=== PATIENT | female | born 1940 | race African-American/Black ===

== ENCOUNTER 2023-04-03 14:56 | Inpatient (IN) | payer MEDICARE ==
[~2023-04-03] VITALS: Ht 154.9 cm; Wt 57.0 kg
[2023-04-03] MEDS ORDERED: 0.9% SODIUM CHLORIDE 10 ML SYRINGE IVP PRN (15:15)
[2023-04-03] MEDS ORDERED: CefTRIAXone 1 GM/DEXTROSE 50 ML IV ONE (15:15)
[2023-04-03] MEDS ORDERED: SODIUM CHLORIDE 0.9% 2,000 ML IV ONE (15:15)
[2023-04-03 15:47] LABS: COVID AG,FIA SOURCE NASOPHARYNGEAL
[2023-04-03 15:57] LABS: BASOPHILS % (AUTO) 0.1 % (0.0-2.0); EOSINOPHILS % (AUTO) 0.1 % (1.0-6.0); HEMATOCRIT 35.8 % (36-46); HEMOGLOBIN 11.3 g/dL (12.0-16.0); LYMPHOCYTES % (AUTO) 6.6 % (22.0-44.0); MEAN CORPUSCULAR HEMOGLOBIN 29.4 pg (26.0-34.0); MEAN CORPUSCULAR HGB CONC 31.5 G/dL (31.0-37.0); MEAN CORPUSCULAR VOLUME 93 fL (80-100); MONOCYTES # (AUTO) 0.5 K/uL (0.1-1.0); MONOCYTES % (AUTO) 3.1 % (2.0-9.0); NEUTROPHILS # (AUTO) 13.7 K/uL (1.8-7.7); PLATELET COUNT (AUTO) 196 K/uL (150-450); RED BLOOD CELL COUNT(AUTO) 3.83 MIL/uL (4.00-5.20); RED CELL DISTRIBUTION WIDTH 16.8 % (11.5-14.5)
[2023-04-03 15:59] LABS: NEUTROPHILS % (AUTO) 90.1 % (40.0-70.0)
[2023-04-03] MEDS ORDERED: ACETAMINOPHEN 1000 MG/ISO-OSM 100 ML IV ONE (16:00)
[2023-04-03 16:08] LABS: INR 1.3 (0.9-1.1); PROTHROMBIN TIME 13.6 SEC (9.4-11.6)
[2023-04-03 16:09] LABS: ANION GAP 16 mmol/L (8-16); CALCIUM, TOTAL 8.8 mg/dL (8.8-10.5); CARBON DIOXIDE 25 mmol/L (22-29); CHLORIDE 104 mmol/L (98-107); CREATININE 1.56 mg/dL (0.60-1.30); GLOMERULAR FILTR. RATE CALC 38 mL/min (>60); GLUCOSE,RANDOM 157 mg/dL (70-110); POTASSIUM 3.3 mmol/L (3.5-5.1); SODIUM SERUM 145 mmol/L (136-145)
[2023-04-03 16:14] LABS: AMMONIA 39 umol/L (11-32); B-TYPE NATRIURETIC PEPTIDE 124 pg/mL (0-100)
[2023-04-03 16:17] LABS: LACTIC ACID 3.5 mmol/L (0.4-2.0)
[2023-04-03 16:22] LABS: ALANINE AMINOTRANSFERASE 7 U/L (12-78); ALBUMIN 1.8 g/dL (3.4-5.0); ALKALINE PHOSPHATASE 133 U/L (46-116); ASPARTATE AMINOTRANSFERASE 25 U/L (15-37); BILIRUBIN,TOTAL 0.5 mg/dL (0.1-1.0); TOTAL PROTEIN, SERUM 6.8 g/dL (6.4-8.2)
[2023-04-03 16:35] LABS: LIPASE < 10 U/L (73-393)
[2023-04-03] MEDS ORDERED: SODIUM CHLORIDE 0.9% 1,000 ML IV ONE ×2 (17:15→19:15)
[2023-04-03] MEDS ORDERED: PIPERACILLIN/TAZO 3.375 GM/D5W 50 ML IV ONE (18:45)
[2023-04-03] MEDS: NOREPINEPHRINE 8 MG/0.9 % NACL 250 ML IV PRN (18:54)
[2023-04-03] MEDS ORDERED: ONDANSETRON HCL 4 MG/2 ML VIAL IVP PRN (19:15)
[2023-04-03] MEDS ORDERED: OxyCODONE HCL/ACETAMINOPHEN 5-325 MG TABLET PO PRN (19:15)
[2023-04-03 19:26] LABS: APPEARANCE,URINE HAZY (CLEAR); BILIRUBIN,URINE NEGATIVE (NEGATIVE); GLUCOSE, URINE (UA) NEGATIVE (NEGATIVE); KETONES,URINE NEGATIVE (NEGATIVE); LEUKOCYTE ESTERASE ,URINE LARGE (NEGATIVE); NITRATE,URINE NEGATIVE (NEGATIVE); OCCULT BLOOD,URINE MODERATE (NEGATIVE); PROTEIN,URINE 100-200,SEE CONFIRM mg/dL (NEGATIVE); SPECIFIC GRAVITIY, URINE 1.013 (1.003-1.030)
[2023-04-03] MEDS ORDERED: VANCOMYCIN HCL 750 MG in DEXTROSE 5%-WATER 250 ML IV ONE (19:30)
[2023-04-03 19:35] LABS: BACTERIA,URINE Many /HPF (None Seen); SULFOSALICYLIC ACID,URINE 3+ (Negative); WBC,URINE 51-100 /HPF (0-5)
[2023-04-03 19:36] LABS: SQUAMOUS EPITHELIAL CELL,UR Moderate /LPF (None Seen)
[2023-04-03 23:00] VITALS: BP 117/44; PULSE 95; RESP 22; TEMP 99.6
[2023-04-03] MEDS: DOCUSATE SODIUM 100 MG CAPSULE PO SCH (23:59)
[2023-04-03] MEDS: HEPARIN SODIUM,PORCINE 5,000 UNITS/ML VIAL SQ SCH (23:59)
[2023-04-04] VITALS: BP 76/51; PULSE 93; RESP 21; TEMP 99.6
[2023-04-04] MEDS ORDERED: SODIUM CHLORIDE 0.9% 250 ML IV ONE ×3 (00:01→18:00)
[2023-04-04] MEDS ORDERED: PIPERACILLIN SODIUM/TAZOBACTAM 2.25 GM in DEXTROSE 5%-WATER 50 ML IV SCH (01:00)
[2023-04-04] MEDS: ACETAMINOPHEN 650 MG/ISO-OSM 65 ML IV PRN ×2 (02:41→16:25)
[2023-04-04 04:00] VITALS: BP 111/66; PULSE 116; RESP 32; TEMP 103.7
[2023-04-04] MEDS: NOREPINEPHRINE 8 MG/0.9 % NACL 250 ML IV PRN (05:16)
[2023-04-04 06:11] LABS: CALCIUM, TOTAL 7.4 mg/dL (8.8-10.5); CREATININE 1.64 mg/dL (0.60-1.30)
[2023-04-04 06:16] LABS: POTASSIUM 2.7 mmol/L (3.5-5.1)
[2023-04-04 06:45] LABS: LACTIC ACID 5.9 mmol/L (0.4-2.0)
[2023-04-04] MEDS: POTASSIUM CHL 10 MEQ/WATER 50 ML IV SCH ×4 (06:51→10:05)
[2023-04-04] MEDS ORDERED: DEXTROSE 50%-WATER 25 GM/50 ML SYRINGE IVP PRN (07:30)
[2023-04-04 08:00] VITALS: BP 94/48; PULSE 109; PULSE 94; RESP 26; TEMP 99.8
[2023-04-04] MEDS: MULTIVITAMINS WITH MINERALS, THERAPEUTIC TABLET PO SCH ×2 (08:17→09:00)
[2023-04-04] MEDS: HEPARIN SODIUM,PORCINE 5,000 UNITS/ML VIAL SQ SCH ×2 (08:17→15:43)
[2023-04-04] MEDS: PIPERACILLIN SODIUM/TAZOBACTAM 2.25 GM in DEXTROSE 5%-WATER 50 ML IV SCH ×5 (08:18→18:41)
[2023-04-04] MEDS: DOCUSATE SODIUM 100 MG CAPSULE PO SCH ×2 (08:18→19:34)
[2023-04-04] MEDS: FAMOTIDINE 20 MG TABLET PO SCH ×2 (08:18→09:00)
[2023-04-04] MEDS: VANCOMYCIN HCL 500 MG in DEXTROSE 5%-WATER 100 ML IV SCH (08:19)
[2023-04-04 09:25] LABS: BASOPHILS % (AUTO) 0.1 % (0.0-2.0); EOSINOPHILS % (AUTO) 0.3 % (1.0-6.0); LYMPHOCYTES # (AUTO) 0.5 K/uL (1.0-4.8); LYMPHOCYTES % (AUTO) 3.5 % (22.0-44.0); MEAN CORPUSCULAR VOLUME 95 fL (80-100); MONOCYTES # (AUTO) 0.4 K/uL (0.1-1.0); MONOCYTES % (AUTO) 2.4 % (2.0-9.0); NEUTROPHILS # (AUTO) 14.6 K/uL (1.8-7.7)
[2023-04-04 09:26] LABS: NEUTROPHILS % (AUTO) 93.7 % (40.0-70.0)
[2023-04-04 09:27] LABS: HEMATOCRIT 33.2 % (36-46); HEMOGLOBIN 10.3 g/dL (12.0-16.0); MEAN CORPUSCULAR HEMOGLOBIN 29.2 pg (26.0-34.0); PLATELET COUNT (AUTO) 186 K/uL (150-450); RED BLOOD CELL COUNT(AUTO) 3.29 MIL/uL (4.00-5.20)
[2023-04-04 12:00] VITALS: BP 89/50; PULSE 105; RESP 26; TEMP 98.7
[2023-04-04 16:00] VITALS: BP 161/99; PULSE 125; RESP 27; TEMP 100.3
[2023-04-04] MEDS ORDERED: METOPROLOL TARTRATE 5 MG/5 ML VIAL IVP ONE (18:00)
[2023-04-04] MEDS: DEXTROSE 5%-0.45% SODIUM CHL 1,000 ML IV SCH (18:04)
[2023-04-04 20:00] VITALS: BP 87/55; PULSE 95; RESP 28; TEMP 99.2
[2023-04-05] VITALS: BP 115/68; PULSE 95; RESP 23; TEMP 99.5
[2023-04-05] MEDS: HEPARIN SODIUM,PORCINE 5,000 UNITS/ML VIAL SQ SCH ×3 (00:30→18:31)
[2023-04-05] MEDS: PIPERACILLIN SODIUM/TAZOBACTAM 2.25 GM in DEXTROSE 5%-WATER 50 ML IV SCH ×2 (00:30→07:06)
[2023-04-05 04:00] VITALS: BP 143/77; PULSE 119; PULSE 120; RESP 29; TEMP 99.9
[2023-04-05] MEDS: ACETAMINOPHEN 650 MG/ISO-OSM 65 ML IV PRN (04:51)
[2023-04-05] MEDS: INSULIN LISPRO 100 UNITS/ML SQ PRN (05:28)
[2023-04-05 05:55] LABS: CALCIUM, TOTAL 6.1 mg/dL (8.8-10.5); CREATININE 1.58 mg/dL (0.60-1.30); VANCOMYCIN,RANDOM 13.3 mcg/mL (25.0-50.0)
[2023-04-05 06:08] LABS: POTASSIUM 2.4 mmol/L (3.5-5.1)
[2023-04-05] MEDS: VANCOMYCIN HCL 500 MG in DEXTROSE 5%-WATER 100 ML IV SCH (07:50)
[2023-04-05 08:00] VITALS: BP 86/46; PULSE 104; RESP 21; TEMP 100.1
[2023-04-05] MEDS: PHENYLEPHRINE 200 MG/D5%-WATER 250 ML IV PRN ×2 (08:15→20:12)
[2023-04-05] MEDS: DOCUSATE SODIUM 100 MG CAPSULE PO SCH ×2 (09:00→20:03)
[2023-04-05] MEDS: MULTIVITAMINS WITH MINERALS, THERAPEUTIC TABLET PO SCH (09:34)
[2023-04-05] MEDS: POTASSIUM CHLORIDE 20 MEQ ER TABLET PO PRN (09:34)
[2023-04-05] MEDS: FAMOTIDINE 20 MG TABLET PO SCH (09:34)
[2023-04-05] MEDS: POTASSIUM CHL 10 MEQ/WATER 50 ML IV PRN ×3 (09:35→14:54)
[2023-04-05] MEDS: DEXTROSE 5%-0.45% SODIUM CHL 1,000 ML IV SCH ×2 (09:38→22:32)
[2023-04-05] MEDS: NOREPINEPHRINE 8 MG/0.9 % NACL 250 ML IV PRN (10:51)
[2023-04-05 12:00] VITALS: BP 98/47; PULSE 101; RESP 24; TEMP 100
[2023-04-05] MEDS ORDERED: *CLINICAL-LEVOFLOXACIN IVPB DOSING CLINICAL ONE (12:00)
[2023-04-05] MEDS ORDERED: *CLINICAL-MEROPENEM DOSING CLINICAL ONE (12:00)
[2023-04-05] MEDS: ACETAMINOPHEN 325 MG TABLET PO PRN (12:04)
[2023-04-05 12:51] LABS: C.DIFF GDH ANTIGEN, Stool Positive (Negative); C.DIFF TOXINS A&B, Stool Negative (Negative)
[2023-04-05] MEDS: LEVOFLOXACIN 750 MG/D5% WATER 150 ML IV SCH (14:04)
[2023-04-05] MEDS: MEROPENEM 500 MG in SODIUM CHLORIDE 0.9% 50 ML IV SCH (14:05)
[2023-04-05 16:47] VITALS: BP 114/64; PULSE 103; RESP 26; TEMP 99.6
[2023-04-05] MEDS: MetroNIDAZOLE 500 MG TABLET PO SCH (18:31)
[2023-04-05 20:00] VITALS: BP 102/60; PULSE 105; RESP 26; TEMP 99.6
[2023-04-05] MEDS: ETHYL ALCOHOL 62% ANTISEPTIC NASAL SANITIZER 0.6 ML AMPUL NASAL SCH (20:32)
[2023-04-06] VITALS: BP 94/71; PULSE 106; RESP 27; TEMP 99.7
[2023-04-06] MEDS: MetroNIDAZOLE 500 MG TABLET PO SCH ×2 (00:04→08:10)
[2023-04-06] MEDS: HEPARIN SODIUM,PORCINE 5,000 UNITS/ML VIAL SQ SCH ×3 (00:04→16:31)
[2023-04-06] MEDS: MEROPENEM 500 MG in SODIUM CHLORIDE 0.9% 50 ML IV SCH ×2 (02:12→15:17)
[2023-04-06 04:00] VITALS: BP 96/72; PULSE 106; RESP 25; TEMP 99.7
[2023-04-06] MEDS: INSULIN LISPRO 100 UNITS/ML SQ PRN (06:03)
[2023-04-06 06:13] LABS: CALCIUM, TOTAL 7.5 mg/dL (8.8-10.5); CREATININE 1.63 mg/dL (0.60-1.30); POTASSIUM 3.2 mmol/L (3.5-5.1)
[2023-04-06] MEDS: POTASSIUM CHLORIDE 20 MEQ ER TABLET PO PRN (06:42)
[2023-04-06] MEDS: PHENYLEPHRINE 200 MG/D5%-WATER 250 ML IV PRN ×2 (07:39→23:08)
[2023-04-06] MEDS: NOREPINEPHRINE 8 MG/0.9 % NACL 250 ML IV PRN (07:39)
[2023-04-06 08:00] VITALS: BP 130/68; PULSE 106; RESP 25; TEMP 99.7
[2023-04-06] MEDS: VANCOMYCIN HCL 500 MG in DEXTROSE 5%-WATER 100 ML IV SCH (08:09)
[2023-04-06] MEDS: ETHYL ALCOHOL 62% ANTISEPTIC NASAL SANITIZER 0.6 ML AMPUL NASAL SCH ×2 (08:09→20:49)
[2023-04-06] MEDS: FAMOTIDINE 20 MG TABLET PO SCH (08:10)
[2023-04-06] MEDS: DOCUSATE SODIUM 100 MG CAPSULE PO SCH ×2 (08:10→20:49)
[2023-04-06] MEDS: MULTIVITAMINS WITH MINERALS, THERAPEUTIC TABLET PO SCH (08:10)
[2023-04-06] MEDS: MIDODRINE HCL 5 MG TABLET PO SCH ×3 (09:04→20:49)
[2023-04-06 10:08] LABS: HEMATOCRIT 32.4 % (36-46); MEAN CORPUSCULAR HEMOGLOBIN 29.2 pg (26.0-34.0); MEAN CORPUSCULAR HGB CONC 30.8 G/dL (31.0-37.0); MEAN CORPUSCULAR VOLUME 95 fL (80-100); RED BLOOD CELL COUNT(AUTO) 3.42 MIL/uL (4.00-5.20)
[2023-04-06 10:47] LABS: PLATELET COUNT (AUTO) 28 K/uL (150-450)
[2023-04-06 11:06] LABS: BAND NEUTROPHILS % (MANUAL) 10 % (0-5); LYMPHOCYTES % (MANUAL) 5 % (22-44); MONOCYTES % (MANUAL) 4 % (2-9); SEGMENTED NEUTROPHILS % 81 % (40-70)
[2023-04-06 11:09] LABS: WBC MORPHOLOGY TOXIC GRANULATION
[2023-04-06 12:00] VITALS: BP 83/67; PULSE 99; RESP 28; TEMP 99.3
[2023-04-06] MEDS: DEXTROSE 5%-0.45% SODIUM CHL 1,000 ML IV SCH (12:39)
[2023-04-06] MEDS: SODIUM CHLORIDE 0.9% 1,000 ML IV SCH (13:10)
[2023-04-06] MEDS: VANCOMYCIN HCL 125 MG/2.5 ML SOLUTION ORAL.SYG PO SCH ×2 (13:13→17:30)
[2023-04-06 16:00] VITALS: BP 88/62; PULSE 90; RESP 27; TEMP 99.2
[2023-04-06] MEDS: ACETAMINOPHEN 325 MG TABLET PO PRN (17:30)
[2023-04-06 20:00] VITALS: BP 97/69; PULSE 97; RESP 24; TEMP 98.9
[2023-04-07] VITALS: BP 101/71; PULSE 94; RESP 21; TEMP 98.8
[2023-04-07] MEDS: VANCOMYCIN HCL 125 MG/2.5 ML SOLUTION ORAL.SYG PO SCH ×4 (00:17→17:43)
[2023-04-07] MEDS: HEPARIN SODIUM,PORCINE 5,000 UNITS/ML VIAL SQ SCH ×3 (00:17→17:43)
[2023-04-07] MEDS: MEROPENEM 500 MG in SODIUM CHLORIDE 0.9% 50 ML IV SCH (02:45)
[2023-04-07 04:00] VITALS: BP 110/74; PULSE 90; RESP 22; TEMP 99
[2023-04-07] MEDS: INSULIN LISPRO 100 UNITS/ML SQ PRN (06:19)
[2023-04-07 06:26] LABS: HEMOGLOBIN 9.9 g/dL (12.0-16.0); MEAN CORPUSCULAR HEMOGLOBIN 28.3 pg (26.0-34.0); MEAN CORPUSCULAR HGB CONC 30.8 G/dL (31.0-37.0); MEAN CORPUSCULAR VOLUME 92 fL (80-100); PLATELET COUNT (AUTO) 38 K/uL (150-450); RED BLOOD CELL COUNT(AUTO) 3.49 MIL/uL (4.00-5.20); RED CELL DISTRIBUTION WIDTH 17.8 % (11.5-14.5)
[2023-04-07 06:51] LABS: CALCIUM, TOTAL 7.8 mg/dL (8.8-10.5); CREATININE 1.08 mg/dL (0.60-1.30); POTASSIUM 3.4 mmol/L (3.5-5.1); VANCOMYCIN,RANDOM 15.4 mcg/mL (25.0-50.0)
[2023-04-07 08:00] VITALS: BP 104/91; PULSE 83; PULSE 84; RESP 23; TEMP 98.9
[2023-04-07] MEDS: MULTIVITAMINS WITH MINERALS, THERAPEUTIC TABLET PO SCH (08:33)
[2023-04-07] MEDS: DOCUSATE SODIUM 100 MG CAPSULE PO SCH ×2 (08:33→21:00)
[2023-04-07] MEDS: MIDODRINE HCL 5 MG TABLET PO SCH ×3 (08:33→21:15)
[2023-04-07] MEDS: FAMOTIDINE 20 MG TABLET PO SCH (08:34)
[2023-04-07] MEDS: SODIUM CHLORIDE 0.9% 1,000 ML IV SCH (08:34)
[2023-04-07] MEDS: VANCOMYCIN HCL 500 MG in DEXTROSE 5%-WATER 100 ML IV SCH (08:35)
[2023-04-07] MEDS: ETHYL ALCOHOL 62% ANTISEPTIC NASAL SANITIZER 0.6 ML AMPUL NASAL SCH ×2 (08:35→21:15)
[2023-04-07 11:29] LABS: BAND NEUTROPHILS % (MANUAL) 12 % (0-5); LYMPHOCYTES % (MANUAL) 7 % (22-44); MONOCYTES % (MANUAL) 3 % (2-9); SEGMENTED NEUTROPHILS % 78 % (40-70)
[2023-04-07 12:00] VITALS: BP 104/64; PULSE 80; PULSE 93; RESP 26; TEMP 98.7
[2023-04-07] MEDS: LEVOFLOXACIN 750 MG/D5% WATER 150 ML IV SCH (12:42)
[2023-04-07] MEDS: MEROPENEM 1 GM in SODIUM CHLORIDE 0.9% 100 ML IV SCH (14:30)
[2023-04-07 16:00] VITALS: BP 106/69; PULSE 83; PULSE 84; RESP 25; TEMP 97.7
[2023-04-07 20:00] VITALS: BP 104/71; PULSE 86; PULSE 91; RESP 27; TEMP 99.1
[2023-04-08] VITALS (9 sets, daily range): BP systolic 110–152; BP diastolic 69–105; PULSE 76–101; RESP 15–24; TEMP 97.6–99.3
[2023-04-08] MEDS: HEPARIN SODIUM,PORCINE 5,000 UNITS/ML VIAL SQ SCH ×4 (01:10→23:21)
[2023-04-08] MEDS: VANCOMYCIN HCL 125 MG/2.5 ML SOLUTION ORAL.SYG PO SCH ×5 (01:18→23:21)
[2023-04-08] MEDS: MEROPENEM 1 GM in SODIUM CHLORIDE 0.9% 100 ML IV SCH ×2 (02:06→15:06)
[2023-04-08] MEDS: SODIUM CHLORIDE 0.9% 1,000 ML IV SCH (05:33)
[2023-04-08] MEDS: VANCOMYCIN HCL 500 MG in DEXTROSE 5%-WATER 100 ML IV SCH (08:23)
[2023-04-08] MEDS: ETHYL ALCOHOL 62% ANTISEPTIC NASAL SANITIZER 0.6 ML AMPUL NASAL SCH ×2 (08:24→21:34)
[2023-04-08] MEDS: DOCUSATE SODIUM 100 MG CAPSULE PO SCH ×2 (08:25→21:34)
[2023-04-08] MEDS: FAMOTIDINE 20 MG TABLET PO SCH (08:25)
[2023-04-08] MEDS: MULTIVITAMINS WITH MINERALS, THERAPEUTIC TABLET PO SCH (08:25)
[2023-04-08] MEDS: MIDODRINE HCL 5 MG TABLET PO SCH ×3 (09:00→21:34)
[2023-04-08 09:19] LABS: HEMATOCRIT 40.2 % (36-46); HEMOGLOBIN 12.3 g/dL (12.0-16.0); MEAN CORPUSCULAR HEMOGLOBIN 28.6 pg (26.0-34.0); MEAN CORPUSCULAR HGB CONC 30.7 G/dL (31.0-37.0); MEAN CORPUSCULAR VOLUME 93 fL (80-100); PLATELET COUNT (AUTO) 37 K/uL (150-450); RED BLOOD CELL COUNT(AUTO) 4.31 MIL/uL (4.00-5.20); RED CELL DISTRIBUTION WIDTH 17.6 % (11.5-14.5)
[2023-04-08 09:22] LABS: BAND NEUTROPHILS % (MANUAL) 12 % (0-5); LYMPHOCYTES % (MANUAL) 11 % (22-44); MONOCYTES % (MANUAL) 6 % (2-9); SEGMENTED NEUTROPHILS % 71 % (40-70)
[2023-04-08 09:33] LABS: ANION GAP 12 mmol/L (8-16); CALCIUM, TOTAL 8.4 mg/dL (8.8-10.5); CARBON DIOXIDE 18 mmol/L (22-29); CHLORIDE 108 mmol/L (98-107); CREATININE 0.93 mg/dL (0.60-1.30); GLOMERULAR FILTR. RATE CALC > 60 mL/min (>60); GLUCOSE,RANDOM 122 mg/dL (70-110); POTASSIUM 3.6 mmol/L (3.5-5.1); SODIUM SERUM 138 mmol/L (136-145)
[2023-04-08] MEDS ORDERED: LIDOCAINE/PF 1% 30 ML VIAL ONE (12:35)
[2023-04-08] MEDS ORDERED: IOHEXOL 300 MG/ML 100 ML VIAL ONE (12:36)
[2023-04-08] MEDS: INSULIN LISPRO 100 UNITS/ML SQ PRN (23:26)
[2023-04-09] VITALS (8 sets, daily range): BP systolic 93–145; BP diastolic 48–81; PULSE 81–93; RESP 14–19; TEMP 97.7–99.3
[2023-04-09] MEDS ORDERED: LIDOCAINE/PF 2% 5 ML VIAL IM ONE (01:39)
[2023-04-09] MEDS: SODIUM CHLORIDE 0.9% 1,000 ML IV SCH ×2 (03:07→22:27)
[2023-04-09] MEDS: MEROPENEM 1 GM in SODIUM CHLORIDE 0.9% 100 ML IV SCH ×2 (03:08→13:46)
[2023-04-09 06:13] LABS: ANION GAP 12 mmol/L (8-16); CALCIUM, TOTAL 7.9 mg/dL (8.8-10.5); CARBON DIOXIDE 18 mmol/L (22-29); CHLORIDE 111 mmol/L (98-107); CREATININE 0.76 mg/dL (0.60-1.30); GLOMERULAR FILTR. RATE CALC > 60 mL/min (>60); GLUCOSE,RANDOM 112 mg/dL (70-110); POTASSIUM 3.1 mmol/L (3.5-5.1); SODIUM SERUM 147 mmol/L (136-145)
[2023-04-09 06:40] LABS: BASOPHILS % (AUTO) 0.5 % (0.0-2.0); EOSINOPHILS % (AUTO) 0.9 % (1.0-6.0); HEMATOCRIT 29.6 % (36-46); HEMOGLOBIN 9.3 g/dL (12.0-16.0); LYMPHOCYTES # (AUTO) 3.5 K/uL (1.0-4.8); LYMPHOCYTES % (AUTO) 15.4 % (22.0-44.0); MEAN CORPUSCULAR HEMOGLOBIN 28.7 pg (26.0-34.0); MEAN CORPUSCULAR HGB CONC 31.5 G/dL (31.0-37.0); MEAN CORPUSCULAR VOLUME 91 fL (80-100); MONOCYTES # (AUTO) 2.1 K/uL (0.1-1.0); MONOCYTES % (AUTO) 9.1 % (2.0-9.0); NEUTROPHILS # (AUTO) 16.9 K/uL (1.8-7.7); NEUTROPHILS % (AUTO) 74.1 % (40.0-70.0); PLATELET COUNT (AUTO) 79 K/uL (150-450); RED BLOOD CELL COUNT(AUTO) 3.24 MIL/uL (4.00-5.20); RED CELL DISTRIBUTION WIDTH 17.7 % (11.5-14.5)
[2023-04-09] MEDS: VANCOMYCIN HCL 125 MG/2.5 ML SOLUTION ORAL.SYG PO SCH ×3 (06:52→18:43)
[2023-04-09] MEDS: POTASSIUM CHL 10 MEQ/WATER 50 ML IV PRN ×3 (06:52→13:47)
[2023-04-09] MEDS ORDERED: VANCOMYCIN HCL 750 MG in DEXTROSE 5%-WATER 250 ML IV SCH (08:00)
[2023-04-09] MEDS: DOCUSATE SODIUM 100 MG CAPSULE PO SCH ×2 (09:00→21:00)
[2023-04-09] MEDS: MULTIVITAMINS WITH MINERALS, THERAPEUTIC TABLET PO SCH (09:04)
[2023-04-09] MEDS: FAMOTIDINE 20 MG TABLET PO SCH (09:04)
[2023-04-09] MEDS: ETHYL ALCOHOL 62% ANTISEPTIC NASAL SANITIZER 0.6 ML AMPUL NASAL SCH ×2 (09:05→22:25)
[2023-04-09] MEDS: HEPARIN SODIUM,PORCINE 5,000 UNITS/ML VIAL SQ SCH ×2 (09:05→15:21)
[2023-04-09] MEDS: MIDODRINE HCL 5 MG TABLET PO SCH ×3 (09:15→21:00)
[2023-04-09] MEDS ORDERED: DEXTROSE 5%-WATER 500 ML IV ONE (13:45)
[2023-04-09] MEDS: ACETAMINOPHEN 325 MG TABLET PO PRN (13:47)
[2023-04-10] MEDS: HEPARIN SODIUM,PORCINE 5,000 UNITS/ML VIAL SQ SCH ×4 (01:03→23:05)
[2023-04-10] MEDS: INSULIN LISPRO 100 UNITS/ML SQ PRN (01:13)
[2023-04-10 01:17] LABS: GLUCOMETER DEV NAME(LOC) 5N.2C
[2023-04-10] MEDS: VANCOMYCIN HCL 125 MG/2.5 ML SOLUTION ORAL.SYG PO SCH ×4 (01:17→18:58)
[2023-04-10] MEDS: MEROPENEM 1 GM in SODIUM CHLORIDE 0.9% 100 ML IV SCH ×3 (02:05→18:59)
[2023-04-10 04:05] VITALS: BP 138/74; PULSE 100; RESP 20; TEMP 97.7
[2023-04-10 06:46] LABS: GLUCOMETER DEV NAME(LOC) 5N.2C
[2023-04-10 07:45] VITALS: BP 126/76; PULSE 92; RESP 18; TEMP 98
[2023-04-10 08:14] LABS: BASOPHILS % (AUTO) 0.5 % (0.0-2.0); EOSINOPHILS % (AUTO) 2.1 % (1.0-6.0); HEMATOCRIT 24.9 % (36-46); HEMOGLOBIN 8.2 g/dL (12.0-16.0); LYMPHOCYTES # (AUTO) 3.5 K/uL (1.0-4.8); LYMPHOCYTES % (AUTO) 18.7 % (22.0-44.0); MEAN CORPUSCULAR HEMOGLOBIN 29.6 pg (26.0-34.0); MEAN CORPUSCULAR HGB CONC 32.8 G/dL (31.0-37.0); MEAN CORPUSCULAR VOLUME 90 fL (80-100); MONOCYTES # (AUTO) 1.5 K/uL (0.1-1.0); MONOCYTES % (AUTO) 8.3 % (2.0-9.0); NEUTROPHILS # (AUTO) 13.2 K/uL (1.8-7.7); NEUTROPHILS % (AUTO) 70.4 % (40.0-70.0); PLATELET COUNT (AUTO) 80 K/uL (150-450); RED BLOOD CELL COUNT(AUTO) 2.77 MIL/uL (4.00-5.20); RED CELL DISTRIBUTION WIDTH 16.7 % (11.5-14.5)
[2023-04-10 08:28] LABS: ALANINE AMINOTRANSFERASE 61 U/L (12-78); ALBUMIN 1.4 g/dL (3.4-5.0); ALKALINE PHOSPHATASE 96 U/L (46-116); ANION GAP 9 mmol/L (8-16); ASPARTATE AMINOTRANSFERASE 25 U/L (15-37); BILIRUBIN,TOTAL 0.3 mg/dL (0.1-1.0); CALCIUM, TOTAL 7.4 mg/dL (8.8-10.5); CARBON DIOXIDE 22 mmol/L (22-29); CHLORIDE 109 mmol/L (98-107); CREATININE 0.55 mg/dL (0.60-1.30); GLOMERULAR FILTR. RATE CALC > 60 mL/min (>60); GLUCOSE,RANDOM 173 mg/dL (70-110); SODIUM SERUM 140 mmol/L (136-145); TOTAL PROTEIN, SERUM 5.4 g/dL (6.4-8.2)
[2023-04-10 08:32] LABS: POTASSIUM 2.5 mmol/L (3.5-5.1)
[2023-04-10] MEDS ORDERED: SODIUM CHLORIDE 0.9% 250 ML IV ONE ×2 (08:53→10:30)
[2023-04-10] MEDS: DOCUSATE SODIUM 100 MG CAPSULE PO SCH ×2 (09:00→21:00)
[2023-04-10] MEDS: POTASSIUM CHL 10 MEQ/WATER 50 ML IV PRN ×10 (09:03→23:05)
[2023-04-10] MEDS: ETHYL ALCOHOL 62% ANTISEPTIC NASAL SANITIZER 0.6 ML AMPUL NASAL SCH ×2 (09:12→21:04)
[2023-04-10] MEDS: VANCOMYCIN HCL 500 MG in DEXTROSE 5%-WATER 100 ML IV SCH ×2 (09:12→18:52)
[2023-04-10] MEDS: MULTIVITAMINS WITH MINERALS, THERAPEUTIC TABLET PO SCH (09:13)
[2023-04-10] MEDS: FAMOTIDINE 20 MG TABLET PO SCH (09:13)
[2023-04-10] MEDS: MIDODRINE HCL 5 MG TABLET PO SCH ×3 (09:42→21:04)
[2023-04-10] MEDS ORDERED: MAGNESIUM SULFATE 2 GM/WATER 50 ML IV PRN (11:30)
[2023-04-10] MEDS ORDERED: MAGNESIUM OXIDE 400 MG TABLET PO PRN (11:30)
[2023-04-10] MEDS ORDERED: MAGNESIUM SULFATE 4 GM/WATER 100 ML IV PRN (11:30)
[2023-04-10 11:46] VITALS: BP 132/96; PULSE 93; RESP 20; TEMP 97.4
[2023-04-10 12:12] LABS: ALBUMIN 1.3 g/dL (3.4-5.0); MAGNESIUM 1.2 mg/dL (1.80-2.40)
[2023-04-10 12:31] VITALS: BP 126/69; PULSE 95; RESP 16; TEMP 98.2
[2023-04-10 16:09] VITALS: BP 127/73; PULSE 95; RESP 18; TEMP 97.9
[2023-04-10] MEDS: SODIUM CHLORIDE 0.9% 1,000 ML IV SCH (16:39)
[2023-04-10 16:51] LABS: GLUCOMETER DEV NAME(LOC) 5S.1B
[2023-04-10 20:19] VITALS: BP 130/74; PULSE 99; RESP 20; TEMP 98
[2023-04-10 21:32] LABS: PHOSPHORUS 2.1 mg/dL (2.5-4.9); POTASSIUM 3.2 mmol/L (3.5-5.1)
[2023-04-10 23:26] LABS: GLUCOMETER DEV NAME(LOC) 5N.2C
[2023-04-11] MEDS: POTASSIUM CHL 10 MEQ/WATER 50 ML IV PRN ×4 (00:09→06:12)
[2023-04-11] MEDS: VANCOMYCIN HCL 125 MG/2.5 ML SOLUTION ORAL.SYG PO SCH ×4 (00:10→18:05)
[2023-04-11 00:19] VITALS: BP 117/75; PULSE 97; RESP 20; TEMP 98.2
[2023-04-11] MEDS: MEROPENEM 1 GM in SODIUM CHLORIDE 0.9% 100 ML IV SCH ×3 (03:26→19:18)
[2023-04-11 04:10] VITALS: BP 136/77; PULSE 100; RESP 18; TEMP 97.9
[2023-04-11 06:36] LABS: GLUCOMETER DEV NAME(LOC) 5N.1C
[2023-04-11 08:00] VITALS: BP 128/72; PULSE 98; RESP 18; TEMP 98
[2023-04-11 09:19] LABS: BASOPHILS % (AUTO) 0.3 % (0.0-2.0); HEMATOCRIT 26.4 % (36-46); HEMOGLOBIN 8.4 g/dL (12.0-16.0); LYMPHOCYTES # (AUTO) 3.3 K/uL (1.0-4.8); LYMPHOCYTES % (AUTO) 20.1 % (22.0-44.0); MEAN CORPUSCULAR HGB CONC 31.8 G/dL (31.0-37.0); MEAN CORPUSCULAR VOLUME 91 fL (80-100); MONOCYTES # (AUTO) 1.3 K/uL (0.1-1.0); MONOCYTES % (AUTO) 8.1 % (2.0-9.0); NEUTROPHILS % (AUTO) 67.5 % (40.0-70.0); PLATELET COUNT (AUTO) 103 K/uL (150-450); RED BLOOD CELL COUNT(AUTO) 2.89 MIL/uL (4.00-5.20); RED CELL DISTRIBUTION WIDTH 16.4 % (11.5-14.5)
[2023-04-11 09:31] LABS: ANION GAP 9 mmol/L (8-16); CALCIUM, TOTAL 7.5 mg/dL (8.8-10.5); CARBON DIOXIDE 24 mmol/L (22-29); CHLORIDE 109 mmol/L (98-107); CREATININE 0.54 mg/dL (0.60-1.30); GLOMERULAR FILTR. RATE CALC > 60 mL/min (>60); GLUCOSE,RANDOM 147 mg/dL (70-110); POTASSIUM 4.2 mmol/L (3.5-5.1); SODIUM SERUM 142 mmol/L (136-145); VANCOMYCIN,RANDOM 14.5 mcg/mL (25.0-50.0)
[2023-04-11] MEDS: FAMOTIDINE 20 MG TABLET PO SCH (09:39)
[2023-04-11] MEDS: MULTIVITAMINS WITH MINERALS, THERAPEUTIC TABLET PO SCH (09:39)
[2023-04-11] MEDS: MIDODRINE HCL 5 MG TABLET PO SCH ×2 (09:39→16:25)
[2023-04-11] MEDS: VANCOMYCIN HCL 500 MG in DEXTROSE 5%-WATER 100 ML IV SCH (09:39)
[2023-04-11] MEDS: DOCUSATE SODIUM 100 MG CAPSULE PO SCH (09:39)
[2023-04-11] MEDS: HEPARIN SODIUM,PORCINE 5,000 UNITS/ML VIAL SQ SCH ×2 (09:40→16:25)
[2023-04-11] MEDS: ETHYL ALCOHOL 62% ANTISEPTIC NASAL SANITIZER 0.6 ML AMPUL NASAL SCH (09:40)
[2023-04-11] MEDS ORDERED: VANCOMYCIN HCL 500 MG in DEXTROSE 5%-WATER 100 ML IV ONE (11:00)
[2023-04-11 11:41] VITALS: BP 130/88; PULSE 100; RESP 18; TEMP 98
[2023-04-11] MEDS: SODIUM CHLORIDE 0.9% 1,000 ML IV SCH (14:07)
[2023-04-11 16:20] VITALS: BP 128/78; PULSE 98; RESP 18; TEMP 98
[2023-04-11 20:00] VITALS: BP 130/72; PULSE 99; RESP 16; TEMP 98.8
[2023-04-12 06:36] LABS: GLUCOMETER DEV NAME(LOC) 5S.1B
[2023-04-12 06:36] LABS: GLUCOMETER DEV NAME(LOC) 5S.1B
[2023-04-12] MEDS ORDERED: VANCOMYCIN 1GM/WATER(PEG/NADA) 200 ML IV SCH (08:00)
== END 2023-04-11 20:42 | disposition short-term general hospital (02) | DRG 871 ==
LOC: EMS 14:56 → ICUN 19:12 → ICU 22:50 → 5S 04-09 18:05
PROVIDERS: ADMIT Internal Medicine; ATTEND Internal Medicine
PROC: 5A09357 Assistance with Respiratory Ventilation, Less than 24 Consecutive Hours, Continuous Positive Airway Pressure (ICD-10-PCS; 2023-04-03)
PROC: 02H633Z Insertion of Infusion Device into Right Atrium, Percutaneous Approach (ICD-10-PCS; 2023-04-03)
PROC: B548ZZA Ultrasonography of Superior Vena Cava, Guidance (ICD-10-PCS; 2023-04-03)
PROC: 0DH67UZ Insertion of Feeding Device into Stomach, Via Natural or Artificial Opening (ICD-10-PCS; 2023-04-03)
PROC: 30233R1 Transfusion of Nonautologous Platelets into Peripheral Vein, Percutaneous Approach (ICD-10-PCS; principal; 2023-04-08)
PROC: 0T903ZZ Drainage of Right Kidney, Percutaneous Approach (ICD-10-PCS; 2023-04-08)
DX: A41.51 Sepsis due to Escherichia coli [E. coli] (principal); L89.154 Pressure ulcer of sacral region, stage 4; R53.2 Functional quadriplegia; R65.21 Severe sepsis with septic shock; N17.9 Acute kidney failure, unspecified; N13.6 Pyonephrosis; G93.40 Encephalopathy, unspecified; N18.30 Chronic kidney disease, stage 3 unspecified; E11.22 Type 2 diabetes mellitus with diabetic chronic kidney disease; D64.9 Anemia, unspecified; I12.9 Hypertensive chronic kidney disease with stage 1 through stage 4 chronic kidney disease, or unspecified chronic kidney disease; B96.1 Klebsiella pneumoniae [K. pneumoniae] as the cause of diseases classified elsewhere; E87.6 Hypokalemia; Z20.822 Contact with and (suspected) exposure to COVID-19; K21.9 Gastro-esophageal reflux disease without esophagitis; F03.90 Unspecified dementia, unspecified severity, without behavioral disturbance, psychotic disturbance, mood disturbance, and anxiety; E87.5 Hyperkalemia; F32.9 Major depressive disorder, single episode, unspecified; S31.000A Unspecified open wound of lower back and pelvis without penetration into retroperitoneum, initial encounter; X58.XXXA Exposure to other specified factors, initial encounter; Y93.89 Activity, other specified; Y92.89 Other specified places as the place of occurrence of the external cause; Y99.8 Other external cause status; Z51.5 Encounter for palliative care; Z74.01 Bed confinement status
CPT/HCPCS: 50430; 70450; 71045; 72125; 74176; 76770; 76937; 80048; 80053; 80202; 81001; 81002; 82040; 82140; 82962; 83605; 83690; 83735; 83880; 84100; 84132; 84145; 84484; 85025; 85610; 85651; 86900; 86901; 87040; 87070; 87075; 87077; 87081; 87086; 87186; 87205; 87324; 87449; 92526; 92610; 93005; 93306; 99291; G0378; J0131; J0696; J1644; J1956; J2185; J2370; J2543; J3370; J3475; J3480; J3490; J7030; J7050; J7060; P9035; Q9967; 36415-L1; 36415-TC